=== PATIENT | male | born 1995 | race Caucasian/White ===

== ENCOUNTER 2018-10-15 15:58 | Emergency (ER) | payer OTHER ==
[~2018-10-15] VITALS: Ht 180.3 cm; Wt 68.0 kg
[2018-10-15 16:25] LABS: ABSOLUTE NEUTROPHILS 13.9 thou/uL (1.4-8.2); BASOPHILS 0.3 % (0.0-2.0); EOSINOPHILS 0.2 % (0.0-3.0); HEMATOCRIT 45.9 % (42.0-52.0); LYMPHOCYTES 7.7 % (24.0-44.0); MCH 30.7 pg (26.0-34.0); MCHC 34.8 g/dL (28.0-37.0); MCV 88.3 fL (80.0-100.0); MONOCYTES 4.6 % (1.0-8.0); PLATELET COUNT 312 thou/uL (150-400); POLYS 87.2 % (36.0-66.0); RDW 13.2 % (10.5-14.5)
[2018-10-15 16:33] LABS: ANION GAP 17 mmol/L (7-16); BUN 12 mg/dL (7-18); CALCIUM 10.1 mg/dL (8.5-10.1); CHLORIDE 102 mmol/L (98-107); CO2 21 mmol/L (21-32); CREATININE 1.3 mg/dL (0.7-1.3); GLUCOSE 147 mg/dL (74-106); POTASSIUM 3.6 mmol/L (3.5-5.1); SODIUM 140 mmol/L (136-145)
[2018-10-15 16:41] LABS: ALBUMIN 5.3 g/dL (3.4-5.0); LIPASE 59 U/L (73-393); SGOT 23 U/L (15-37); SGPT 31 U/L (30-65); TOTAL BILIRUBIN 0.7 mg/dL (<0.1-1.0); TOTAL PROTEIN 8.7 g/dL (6.4-8.2); TROPONIN-I <0.06 ng/mL (<0.06)
[2018-10-15 17:22] LABS: URINE BILIRUBIN NEGATIVE (Negative); URINE BLOOD NEGATIVE (Negative); URINE CLARITY CLEAR; URINE COLOR YELLOW; URINE GLUCOSE-RANDOM* NEGATIVE (Negative); URINE KETONES 3+ (Negative); URINE LEUKOCYTES-REFLEX NEGATIVE (Negative); URINE NITRITE-REFLEX NEGATIVE (Negative); URINE PROTEIN (DIPSTICK) TRACE (Negative); URINE UROBILINOGEN 0.2 E.U./dl (0.2-1.0)
[2018-10-15 17:35] LABS: AMP/METHAMP Negative (Negative); BARBITURATES Negative (Negative); BENZODIAZEPINES Negative (Negative); COCAINE Negative (Negative); METHADONE Negative (Negative); OPIATES POSITIVE (Negative); PCP Negative (Negative)
[2018-10-15] MEDS ORDERED: CARAFATE 1 GM TA1 G1 PO (19:00)
[2018-10-15] MEDS ORDERED: ULTRAM 50MG TAB50 MG PO (19:00)
[2018-10-15] MEDS ORDERED: PHENERGAN 25 MG25 M1 PO (19:00)
[2018-10-15] MEDS ORDERED: ZOFRAN ODT4 MG PO (19:00)
[2018-10-15] MEDS ORDERED: PROTONIX40 MG PO (19:00)
[2018-10-15 19:23] VITALS: BP 125/80
--- NOTE | 2018-10-16 08:26 | EKG ---
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1995 Requested By: Anton Montoya Order Number: [id number] MD: Marcelo Bojorquez Measurements Intervals [place] Rate: 63 P: 46 [place]: 143 QRS: 80 QRSD: 117 T: 70 QT: 440 QTc: 451 Interpretive Statements Sinus rhythm Nonspecific intraventricular conduction delay No previous ECG available for comparison Electronically Signed On 10-16-2018 8:26:16 CDT by Macrelo Bojorquez [email or web address] ��������������������������������������������� <ELECTRONICALLY SIGNED> ���������������������������������������� By: Marcelo Bojorquez MD ��������������������������������������������� 10/16/18 0826 1612 1612 Marcelo Bojorquez MD /ERNESTINE
== END 2018-10-15 19:23 | disposition home or self-care (01) ==
LOC: ER 15:58
PROVIDERS: Emergency Medicine
DX: K29.70 Gastritis, unspecified, without bleeding (principal); R07.89 Other chest pain; F17.210 Nicotine dependence, cigarettes, uncomplicated